=== PATIENT | female | born 2005 | race African-American/Black ===

== ENCOUNTER 2025-02-16 20:03 | Emergency (ER) | payer MEDICAID ==
[~2025-02-16] VITALS: Ht 162.6 cm; Wt 55.0 kg
[2025-02-16 20:11] VITALS: TEMP 36.9; O2SAT 100
[2025-02-16 21:14] LABS: BASOPHILS % 0.8 % (0.0-2.0); EOSINOPHILS % 0.4 % (0.0-5.0); HEMATOCRIT. 40.5 % (36.0-48.0); HEMOGLOBIN. 13.7 g/dL (12.0-16.0); LYMPHOCYTES % 21.3 % (20.0-50.0); MEAN CORPUSCULAR HEMOGLOBIN 28.7 pg (28.0-32.0); MEAN CORPUSCULAR HGB CONC 33.7 g/dL (31.0-37.0); MEAN PLATELET VOLUME 8.8 fl (7.4-10.4); MONOCYTES % 8.8 % (2.0-8.0); NEUTROPHILS % 68.7 % (40.0-76.0); PLATELET 278 x1000/uL (130-400); RED BLOOD CELL COUNT 4.76 mill/uL (4.2-5.4); RED CELL DISTRIBUTION WIDTH 14.2 % (11.6-14.6); WHITE BLOOD COUNT 9.6 x1000/uL (4.5-11.0)
[2025-02-16 21:15] LABS: CHLORIDE 102 mEq/L (98-107); POTASSIUM 3.6 mEq/L (3.5-5.1); SODIUM 136 mEq/L (136-145)
[2025-02-16 21:16] LABS: CALCIUM 9.8 mg/dL (8.7-10.4); CARBON DIOXIDE 27 mEq/L (21-32)
[2025-02-16 21:21] LABS: CREATININE 0.8 mg/dL (0.6-1.0); GLUCOSE 72 mg/dL (70-105); UREA NITROGEN BLOOD 10 mg/dL (9-23)
[2025-02-17] MEDS ORDERED: ONDA-239 PO (00:37)
[2025-02-17 00:57] VITALS: BP 132/77; PULSE 82; RESP 12; O2SAT 99
== END 2025-02-17 01:03 | disposition home or self-care (01) ==
LOC: ER 20:03
DX: O20.8 Other hemorrhage in early pregnancy (principal); Z3A.16 16 weeks gestation of pregnancy; O30.012 Twin pregnancy, monochorionic/monoamniotic, second trimester; O34.82 Maternal care for other abnormalities of pelvic organs, second trimester; O26.892 Other specified pregnancy related conditions, second trimester; N83.202 Unspecified ovarian cyst, left side; N83.201 Unspecified ovarian cyst, right side
CPT/HCPCS: 36415; 76801; 76802; 80048; 84702; 85025; 99284